=== PATIENT | female | born 1980 | race American Indian/Alaskan Native ===

== ENCOUNTER 2017-02-17 03:50 | Emergency (ER) | payer SELFPAY ==
[2017-02-17 04:03] VITALS: BP 129/67; PULSE 79; RESP 16; TEMP 98; O2SAT 98
--- NOTE | 2017-02-17 04:36 | ED PDOC ---
HPI: General Adult Time Seen by Provider: 02/17/17 04:04 Chief Complaint (Nursing): Lower Extremity Problem/Injury History Per: Patient Additional Complaint(s): Pt. states for >10 years she's had b/l knee pain greatest in the L knee. Reports pain is worse with ambulation. Denies trauma, fever, calf pain, numbness , tingling. Past Medical History Reviewed: Historical Data, Nursing Documentation, Vital Signs Vital Signs: Last Vital Signs Temp 98 F 02/17/17 04:01 Pulse 79 02/17/17 04:01 Resp 16 02/17/17 04:01 BP 129/67 02/17/17 04:01 Pulse Ox 98 02/17/17 04:01 - Family History Family History: States: No Known Family Hx - Home Medications Home Medications: Ambulatory Orders Medication Instructions Recorded Naproxen [Naprosyn] 500 mg PO BID PRN #14 tab 02/17/17 - Allergies Allergies/Adverse Reactions: Allergies Allergy/AdvReac Type Severity Reaction Status Date / Time No Known Allergies Allergy Verified 02/17/17 04:00 Review of Systems ROS Statement: Except As Marked, All Systems Reviewed And Found Negative Physical Exam - Physical Exam Appears: Positive for: Well, Non-toxic, No Acute Distress Skin: Positive for: Normal Color, Warm. Negative for: Rash Pulses-Dorsalis Pedis (L): 2+ Pulses-Dorsalis Pedis (R): 2+ Extremity: Positive for: Other (B/L lower extremities: no tenderness, swelling, deformity, warmth, erythema, skin changes) Neurologic/Psych: Positive for: Alert, Oriented - ECG O2 Sat by Pulse Oximetry: 98 - Progress ED Course And Treament: Naproxen 500mg PO ordered. Pt. instructed to f/u with [facility] for further evaluation. Disposition - Clinical Impression Clinical Impression: Arthralgia - Patient ED Disposition Is Patient to be Admitted: No - Disposition Referrals: [facility] [Outside] Disposition: Routine/Home Disposition Time: 04:44 Condition: STABLE Prescriptions: Naproxen [Naprosyn] 500 mg PO BID PRN #14 tab PRN Reason: Pain Instructions: Arthralgia (ED) Forms: [employer] (Luxembourgish) Print Language: HONDURAN
[2017-02-17] MEDS: Naproxen 500 MG TAB PO ONE (04:50)
== END 2017-02-17 06:15 | disposition home or self-care (01) ==
LOC: H.ER 03:50
DX: M25.562 Pain in left knee (principal)

== ENCOUNTER 2017-06-21 23:01 | Emergency (ER) | payer SELFPAY ==
[2017-06-21 23:01] VITALS: BMI 34.0
[2017-06-21 23:05] VITALS: BP 135/65; PULSE 92; RESP 16; TEMP 98.9; O2SAT 98
[2017-06-21] MEDS ORDERED: Sodium Chloride 0.9% 1,000 ML IV STA (23:35)
--- NOTE | 2017-06-21 23:39 | ED PDOC ---
HPI:Nausea, Vomiting, Diarrhea Time Seen by Provider: 06/21/17 23:27 Chief Complaint (Nursing): Flu-like Symptoms Chief Complaint (Provider): Vomiting, diarrhea, feverish, bodyaches History Per: Patient History/Exam Limitations: no limitations Onset/Duration Of Symptoms: Hrs (Since this morning) Severity: Moderate Pain Scale Rating Of: 6 Associated Symptoms: Fever, Chills, Nausea, Vomiting, Diarrhea, Loss Of Appetite Additional Complaint(s): No medications taken for symptoms. Past Medical History Reviewed: Historical Data, Nursing Documentation, Vital Signs Vital Signs: Last Vital Signs Temp 98.9 F 06/21/17 23:02 Pulse 92 H 06/21/17 23:02 Resp 16 06/21/17 23:02 BP 135/65 06/21/17 23:02 Pulse Ox 98 06/21/17 23:02 - Medical History PMH: Anxiety, Bipolar Disorder - Surgical History Surgical History: No Surg Hx - Family History Family History: States: Diabetes - Living Arrangements Living Arrangements: With Family - Social History Current smoker - smoking cessation education provided: No - Immunization History Hx Tetanus Toxoid Vaccination: Yes Hx Influenza Vaccination: Yes Hx Pneumococcal Vaccination: Yes - Home Medications Home Medications: Ambulatory Orders Medication Instructions Recorded oxyCODONE/Acetaminophen [Percocet 1 tab PO Q6 #10 tab 04/23/17 5/325 mg Tab] - Allergies Allergies/Adverse Reactions: Allergies Allergy/AdvReac Type Severity Reaction Status Date / Time No Known Allergies Allergy Verified 04/23/17 09:37 Review of Systems ROS Statement: Except As Marked, All Systems Reviewed And Found Negative Constitutional: Positive for: Fever (Tactile ), Chills Gastrointestinal: Positive for: Nausea, Vomiting, Abdominal Pain, Diarrhea. Negative for: Melena Physical Exam - Reviewed Nursing Documentation Reviewed: Yes Vital Signs Reviewed: Yes - Physical Exam Appears: Positive for: Well, Non-toxic, No Acute Distress Head Exam: Positive for: ATRAUMATIC, NORMAL INSPECTION, NORMOCEPHALIC Skin: Positive for: Normal Color, Warm, DRY Eye Exam: Positive for: Normal appearance ENT: Positive for: Normal ENT Inspection Neck: Positive for: Normal, Painless ROM Cardiovascular/Chest: Positive for: Regular Rate, Rhythm Respiratory: Positive for: Normal Breath Sounds. Negative for: Accessory Muscle Use, Respiratory Distress Gastrointestinal/Abdominal: Positive for: Bowel Sounds, Soft, Tenderness ( Diffuse ). Negative for: Normal Exam Back: Positive for: Normal Inspection Extremity: Positive for: Normal ROM Neurologic/Psych: Positive for: Alert, Oriented - ECG O2 Sat by Pulse Oximetry: 98 Medical Decision Making Medical Decision Making: Endorsed pending labs and re-evaluation. Disposition - Clinical Impression Clinical Impression: Influenza-like symptoms - Patient ED Disposition Is Patient to be Admitted: Transfer of Care - Disposition Disposition: Transfer of Care Disposition Time: 00:00 Condition: STABLE
[2017-06-22 00:58] LABS: BASO # 0.1 K/uL (0.0-0.2); BASO % 1.3 % (0.0-2.0); EOS # 0.2 K/uL (0.0-0.7); EOS % 2.8 % (0.0-4.0); HEMOGLOBIN 11.4 g/dL (12.0-16.0); LYMPH # 1.5 K/uL (1.0-4.3); LYMPH % 24.9 % (20.0-40.0); MEAN CELL VOLUME 85.6 fl (81.0-99.0); MEAN CORPUSCULAR HEMOGLOBIN 28.2 pg (27.0-31.0); MEAN CORPUSCULAR HGB CONC 32.9 g/dL (33.0-37.0); MEAN PLATELET VOLUME 11.3 fl (7.2-11.7); MONO # 0.6 K/uL (0.0-0.8); MONO % 9.8 % (0.0-10.0); NEUT # 3.6 K/uL (1.8-7.0); NEUT % 61.2 % (50.0-75.0); NRBC % 0.2 % (0.0-0.0); RBC 4.06 Mil/uL (3.80-5.20); RED CELL DISTRIBUTION WIDTH 15.9 % (11.5-14.5); WHITE BLOOD COUNT 5.9 K/uL (4.8-10.8)
[2017-06-22 01:38] LABS: BLOOD UREA NITROGEN 18 mg/dl (7-17); CALCIUM 9.8 mg/dL (8.4-10.2); GFR AFRICAN-AMERICAN > 60; GFR NON-AFRICAN AMERICAN > 60
[2017-06-22 01:39] LABS: ALB/GLOB RATIO 3.6 (1.0-2.1); ALT/SGPT 42 U/L (9-52); AST/SGOT 31 U/L (14-36)
--- NOTE | 2017-06-22 01:54 | ED PDOC ---
- Laboratory Results Result Diagrams: 06/21/17 23:39 06/21/17 23:39 - ECG O2 Sat by Pulse Oximetry: 98 - Progress ED Course And Treament: signed out to business writer pending labs and re-eval. Medical Decision Making Medical Decision Making: PT with stable VS and well appearing. pt is homeless requested to stay in ER until morning. pt stable for d.c Disposition - Clinical Impression Clinical Impression: Influenza-like symptoms - POA Present On Arrival: None - Disposition Disposition: Routine/Home Disposition Time: 05:14 Condition: STABLE Prescriptions: Oseltamivir Phosphate [Tamiflu] 75 mg PO BID #10 capsule Instructions: Influenza (ED) Forms: [employer] (Solomon Islander) Progress Note - Review of Symptoms General: No: Chills, Night Sweats, Fatigue, Malaise, Appetite, Other HEENT: No: Head Aches, Visual Changes, Eye Pain, Ear Pain, Dysphasia, Sinus Congestion, Post Nasal Drip, Sore Throat, Other Cardiovascular: No: Chest Pain, Palpitations, Orthopnea, Paroxysmal Noc. Dyspnea , Edema, Light Headedness, Other Gastrointestinal: No: Nausea, Vomiting, Abdominal Pain, Diarrhea, Constipation, Melena, Hematochezia, Other Musculoskeletal: No: Muscle Pain, Joint Pain, Other Neurological: No: Weakness, Numbness, Incoordination, Change in speech, Confusion, Seizures, Other
== END 2017-06-22 06:21 | disposition home or self-care (01) ==
LOC: H.ER 23:01
DX: R11.2 Nausea with vomiting, unspecified (principal); R50.9 Fever, unspecified; R19.7 Diarrhea, unspecified; F31.9 Bipolar disorder, unspecified; F41.9 Anxiety disorder, unspecified; Z59.0 Homelessness
CPT/HCPCS: 80053; 85025; 87804; 96374; 99282; J1885; J2405; J7040

== ENCOUNTER 2017-07-02 23:19 | Emergency (ER) | payer SELFPAY ==
[2017-07-02 23:19] VITALS: BMI 34.0
[2017-07-02 23:24] VITALS: PULSE 70; RESP 16; TEMP 97.8; O2SAT 98
[2017-07-02] MEDS ORDERED: Sodium Chloride 0.9% 1,000 ML IV STA (23:45)
--- NOTE | 2017-07-02 23:48 | ED PDOC ---
HPI: General Adult Time Seen by Provider: 07/02/17 23:31 Chief Complaint (Nursing): Flu-like Symptoms Chief Complaint (Provider): Body Aches, Vomiting, and Diarrhea History Per: Patient History/Exam Limitations: no limitations Onset/Duration Of Symptoms: Days (2 days) Current Symptoms Are (Timing): Still Present Additional Complaint(s): 36 y/o female presents to the ED complaining of body aches, vomiting, and diarrhea, onset of 2 days. Of note, patient was seen in the ED 10 days earlier reporting of similar symptoms. Patient reports of non-bloody vomiting and diarrhea, but denies any abdominal or chest pain. Past Medical History Reviewed: Historical Data Vital Signs: Last Vital Signs Temp 97.8 F 07/02/17 23:22 Pulse 70 07/02/17 23:22 Resp 16 07/02/17 23:22 BP 122/72 07/02/17 23:22 Pulse Ox 98 07/03/17 00:02 - Medical History PMH: Anxiety, Bipolar Disorder - Surgical History Surgical History: - Family History Family History: States: Diabetes - Social History Current smoker - smoking cessation education provided: Yes (light smoker) SMOKER/PACKS PER DAY:: 10 (less than 10 cigarettes per day) Alcohol: None Drugs: Denies - Immunization History Hx Tetanus Toxoid Vaccination: Yes Hx Influenza Vaccination: Yes Hx Pneumococcal Vaccination: Yes - Home Medications Home Medications: Ambulatory Orders Medication Instructions Recorded oxyCODONE/Acetaminophen [Percocet 1 tab PO Q6 #10 tab 04/23/17 5/325 mg Tab] Oseltamivir Phosphate [Tamiflu] 75 mg PO BID #10 capsule 06/22/17 Ondansetron ODT [Zofran ODT] 4 mg PO Q8 PRN #12 odt 07/03/17 - Allergies Allergies/Adverse Reactions: Allergies Allergy/AdvReac Type Severity Reaction Status Date / Time No Known Allergies Allergy Verified 07/02/17 23:22 Review of Systems ROS Statement: Except As Marked, All Systems Reviewed And Found Negative Cardiovascular: Negative for: Chest Pain Gastrointestinal: Positive for: Vomiting (multiple episodes), Diarrhea ( multiple episodes). Negative for: Abdominal Pain, Hematochezia, Hematemesis Physical Exam - Reviewed Nursing Documentation Reviewed: Yes Vital Signs Reviewed: Yes - Physical Exam Appears: Positive for: Non-toxic, No Acute Distress Head Exam: Positive for: ATRAUMATIC, NORMOCEPHALIC Skin: Positive for: Normal Color, Warm Eye Exam: Positive for: Normal appearance, EOMI, PERRL ENT: Positive for: Normal ENT Inspection Neck: Positive for: Normal, Painless ROM, Supple Cardiovascular/Chest: Positive for: Regular Rate, Rhythm. Negative for: Murmur Respiratory: Positive for: Normal Breath Sounds. Negative for: Respiratory Distress Gastrointestinal/Abdominal: Positive for: Normal Exam, Soft. Negative for: Tenderness Back: Positive for: Normal Inspection Extremity: Positive for: Normal ROM. Negative for: Pedal Edema, Deformity Neurologic/Psych: Positive for: Alert, Oriented. Negative for: Motor/Sensory Deficits - Laboratory Results Result Diagrams: 07/03/17 00:15 07/03/17 00:15 - ECG O2 Sat by Pulse Oximetry: 98 (RA) Pulse Ox Interpretation: Normal - Progress Re-evaluation Time: 01:42 Condition: Re-examined, Improved Medical Decision Making Medical Decision Making: Time: --23:45 Impression: --Vomiting and Diarrhea Differential: --Gastroenteritis, Dehydration Plan: --ED Urine Dip --IV Fluids --Zofran 4mg Iv --IV Insertion - Reassess Scribe Attestation: Documented by Evaristo Moreno acting as a scribe for Nadine Fisher MD. Disposition - Clinical Impression Clinical Impression: Vomiting and diarrhea - Patient ED Disposition Is Patient to be Admitted: No Doctor Will See Patient In The: Office Counseled Patient/Family Regarding: Studies Performed, Diagnosis, Need For Followup - Disposition Referrals: [facility] [Outside] Disposition: Routine/Home Disposition Time: :43 Condition: GOOD Additional Instructions: Follow up with your PCP in 2-3 days. Prescriptions: Ondansetron ODT [Zofran ODT] 4 mg PO Q8 PRN #12 odt PRN Reason: Nausea/Vomiting Instructions: Gastroenteritis (ED)
[2017-07-03 00:38] LABS: BASO # 0.1 K/uL (0.0-0.2); BASO % 1.1 % (0.0-2.0); EOS # 0.2 K/uL (0.0-0.7); EOS % 2.6 % (0.0-4.0); HEMOGLOBIN 10.9 g/dL (12.0-16.0); LYMPH # 2.7 K/uL (1.0-4.3); LYMPH % 43.2 % (20.0-40.0); MEAN CELL VOLUME 85.8 fl (81.0-99.0); MEAN CORPUSCULAR HEMOGLOBIN 28.1 pg (27.0-31.0); MEAN CORPUSCULAR HGB CONC 32.8 g/dL (33.0-37.0); MONO # 0.5 K/uL (0.0-0.8); MONO % 7.5 % (0.0-10.0); NEUT # 2.9 K/uL (1.8-7.0); NEUT % 45.6 % (50.0-75.0); NRBC % 0.1 % (0.0-0.0); RBC 3.89 Mil/uL (3.80-5.20); RED CELL DISTRIBUTION WIDTH 15.8 % (11.5-14.5); WHITE BLOOD COUNT 6.4 K/uL (4.8-10.8)
[2017-07-03 00:48] LABS: ALBUMIN 3.7 g/dL (3.5-5.0); ALT/SGPT 37 U/L (9-52); AST/SGOT 22 U/L (14-36); BLOOD UREA NITROGEN 17 mg/dl (7-17); CALCIUM 9.6 mg/dL (8.4-10.2); GFR AFRICAN-AMERICAN > 60; GFR NON-AFRICAN AMERICAN > 60
[2017-07-03 02:57] VITALS: BP 111/76
== END 2017-07-03 02:59 | disposition home or self-care (01) ==
LOC: H.ER 23:19
DX: K52.9 Noninfective gastroenteritis and colitis, unspecified (principal); F31.9 Bipolar disorder, unspecified; F41.9 Anxiety disorder, unspecified
CPT/HCPCS: 80053; 85025; 96360; 99283; J2405; J7040

== ENCOUNTER 2017-07-12 01:03 | Emergency (ER) | payer SELFPAY ==
[2017-07-12 01:03] VITALS: BMI 34.0
[2017-07-12 01:26] VITALS: BP 125/64; PULSE 75; RESP 18; TEMP 98.1; O2SAT 99
[2017-07-12] MEDS ORDERED: Sodium Chloride 0.9% 1,000 ML IV STA (01:35)
--- NOTE | 2017-07-12 01:50 | ED PDOC ---
HPI:Nausea, Vomiting, Diarrhea Time Seen by Provider: 07/12/17 01:19 Chief Complaint (Nursing): GI Problem Chief Complaint (Provider): GI Problem History Per: Patient History/Exam Limitations: no limitations Onset/Duration Of Symptoms: Days (x1) Current Symptoms Are (Timing): Still Present Additional Complaint(s): 36 year old female who presents to the emergency department with a complaint of nausea associated with abdominal pain, 7 episodes of nonbloody, nonbilious vomiting and streaks of blood in diarrhea ongoing for 1 day. Patient reported a stomach virus spreading at work. Denied any fever, chills, cough, chest pain or shortness of breath. PMD: none provided Past Medical History Reviewed: Historical Data, Nursing Documentation, Vital Signs Vital Signs: Last Vital Signs Temp 98.1 F 07/12/17 01:24 Pulse 75 07/12/17 01:24 Resp 18 07/12/17 01:24 BP 125/64 07/12/17 01:24 Pulse Ox 99 07/12/17 01:24 - Medical History PMH: Anxiety, Bipolar Disorder - Surgical History Surgical History: Denies: No Surg Hx - Family History Family History: States: Diabetes - Immunization History Hx Tetanus Toxoid Vaccination: Yes Hx Influenza Vaccination: Yes Hx Pneumococcal Vaccination: Yes - Home Medications Home Medications: Ambulatory Orders Medication Instructions Recorded oxyCODONE/Acetaminophen [Percocet 1 tab PO Q6 #10 tab 04/23/17 5/325 mg Tab] Oseltamivir Phosphate [Tamiflu] 75 mg PO BID #10 capsule 06/22/17 Ondansetron ODT [Zofran ODT] 4 mg PO Q8 PRN #12 odt 07/03/17 Dicyclomine [Bentyl] 20 mg PO Q12 PRN #20 tab 07/12/17 Ondansetron ODT [Zofran ODT] 4 mg PO Q6H PRN #8 odt 07/12/17 - Allergies Allergies/Adverse Reactions: Allergies Allergy/AdvReac Type Severity Reaction Status Date / Time No Known Allergies Allergy Verified 07/12/17 01:26 Review of Systems ROS Statement: Except As Marked, All Systems Reviewed And Found Negative Constitutional: Negative for: Fever, Chills Cardiovascular: Negative for: Chest Pain Respiratory: Negative for: Cough, Shortness of Breath Gastrointestinal: Positive for: Nausea, Vomiting (nonbloody, non bilious x7), Abdominal Pain, Diarrhea (streaks of blood) Physical Exam - Reviewed Nursing Documentation Reviewed: Yes Vital Signs Reviewed: Yes - Physical Exam Appears: Positive for: Well, Non-toxic, No Acute Distress Head Exam: Positive for: ATRAUMATIC, NORMAL INSPECTION, NORMOCEPHALIC Skin: Positive for: Normal Color Eye Exam: Positive for: Normal appearance ENT: Positive for: Pharynx Is (within normal limits), Other (tacky mucous membrane). Negative for: Pharyngeal Erythema, Tonsillar Exudate Neck: Positive for: Normal, Painless ROM, Supple Cardiovascular/Chest: Positive for: Regular Rate, Rhythm, Chest Non Tender Respiratory: Positive for: Normal Breath Sounds. Negative for: Decreased Breath Sounds, Respiratory Distress Gastrointestinal/Abdominal: Positive for: Soft, Tenderness (diffuse mildly) Neurologic/Psych: Positive for: Alert (x3), Oriented - Laboratory Results Result Diagrams: 07/12/17 02:40 07/12/17 02:40 - ECG O2 Sat by Pulse Oximetry: 99 (RA) Pulse Ox Interpretation: Normal Medical Decision Making Medical Decision Making: Initial Impression: Nausea; vomiting; diarrhea Initial Plan: * CMP * Lipase * Urine * Urine dipstick * CBC * Bentyl 20mg PO * NS 1,000ml IV per 1,000mls/hr * Influenza A B ____ Time: 0240 --Rapid flu: negative for influenza. ____ Time: 0345 --Upon provider reevaluation, patient is feeling better, medically stable and requires no further treatment in the ED at this time. Patient will be discharged home with Rx for Bentyl 20mg and Zofran ODT 4mg. Counseling was provided and all questions were answered regarding diagnosis. There is agreement to discharge plan. Return if symptoms persist or worsen. Clinical Impression: Gastroenteritis Scribe Attestation: Documented by Cari Duran, acting as a scribe for Jair Greenwood MD. Provider Scribe Attestation: All medical record entries made by the Scribe were at my direction and personally dictated by me. I have reviewed the chart and agree that the record accurately reflects my personal performance of the history, physical exam, medical decision making, and the department course for this patient. I have also personally directed, reviewed, and agree with the discharge instructions and disposition. Disposition - Clinical Impression Clinical Impression: Gastroenteritis - Patient ED Disposition Is Patient to be Admitted: No Counseled Patient/Family Regarding: Studies Performed, Diagnosis - Disposition Disposition: Routine/Home Disposition Time: 03:45 Condition: STABLE Prescriptions: Dicyclomine [Bentyl] 20 mg PO Q12 PRN #20 tab PRN Reason: abdominal pain/diarrhea Ondansetron ODT [Zofran ODT] 4 mg PO Q6H PRN #8 odt PRN Reason: Nausea/Vomiting Instructions: Gastroenteritis (ED) Forms: [employer] (Nicaraguan)
[2017-07-12 02:50] LABS: BASO # 0.1 K/uL (0.0-0.2); BASO % 0.8 % (0.0-2.0); EOS # 0.1 K/uL (0.0-0.7); EOS % 1.9 % (0.0-4.0); HEMOGLOBIN 10.6 g/dL (12.0-16.0); LYMPH # 2.4 K/uL (1.0-4.3); MEAN CELL VOLUME 85.9 fl (81.0-99.0); MEAN CORPUSCULAR HEMOGLOBIN 27.2 pg (27.0-31.0); MEAN CORPUSCULAR HGB CONC 31.6 g/dL (33.0-37.0); MEAN PLATELET VOLUME 10.6 fl (7.2-11.7); MONO # 0.6 K/uL (0.0-0.8); MONO % 8.9 % (0.0-10.0); NEUT # 3.6 K/uL (1.8-7.0); NEUT % 53.4 % (50.0-75.0); NRBC % 0.1 % (0.0-0.0); RBC 3.92 Mil/uL (3.80-5.20); WHITE BLOOD COUNT 6.8 K/uL (4.8-10.8)
[2017-07-12 03:27] LABS: ALB/GLOB RATIO 1.2 (1.0-2.1); ALBUMIN 4.1 g/dL (3.5-5.0); ALT/SGPT 29 U/L (9-52); AST/SGOT 23 U/L (14-36); BLOOD UREA NITROGEN 19 mg/dl (7-17); CALCIUM 9.7 mg/dL (8.4-10.2); GFR AFRICAN-AMERICAN > 60; GFR NON-AFRICAN AMERICAN > 60; LIPASE 72 U/L (23-300)
== END 2017-07-12 04:00 | disposition home or self-care (01) ==
LOC: H.ER 01:03
DX: K52.9 Noninfective gastroenteritis and colitis, unspecified (principal); F31.9 Bipolar disorder, unspecified; F41.9 Anxiety disorder, unspecified
CPT/HCPCS: 80053; 83690; 85025; 87804; 96360; 99283; J2405; J7040

== ENCOUNTER 2017-07-20 23:22 | Emergency (ER) | payer SELFPAY ==
[2017-07-20 23:31] VITALS: BMI 21.5
[2017-07-20 23:36] VITALS: TEMP 97.1
--- NOTE | 2017-07-21 00:12 | ED PDOC ---
HPI: Psych/Substance Abuse Time Seen by Provider: 07/20/17 23:39 Chief Complaint (Nursing): Alcohol Ingestion Chief Complaint (Provider): Alcohol Ingestion ED Caveat: Intoxicated, Uncooperative History Per: Patient, EMS History/Exam Limitations: intoxication Onset/Duration Of Symptoms: Mins (prior to arrival) Current Symptoms Are (Timing): Still Present Modifying Factor(s): Alcohol Associated Symptoms: Agitation Additional Complaint(s): 36 year old female with a history of bipolar disorder was brought in by EMS for evaluation of intoxication. EMS reports patient was found on the street publicly intoxicated. According to EMS patient appeared confused and intoxicated with unsteady gait. Upon arrival to the ED, she was shouting and acting agitated. History is limited due to intoxication. Patient is not voicing any medical complaints. PMD: none provided. Past Medical History Reviewed: Historical Data, Nursing Documentation, Vital Signs Vital Signs: Last Vital Signs Temp 97.1 F L 07/20/17 23:33 Pulse 104 H 07/20/17 23:33 Resp 18 07/20/17 23:33 BP 142/103 H 07/20/17 23:33 Pulse Ox 98 07/20/17 23:33 - Medical History PMH: Anxiety, Bipolar Disorder Denies: Chronic Kidney Disease - Surgical History Surgical History: - Family History Family History: States: Diabetes - Immunization History Hx Tetanus Toxoid Vaccination: Yes Hx Influenza Vaccination: Yes Hx Pneumococcal Vaccination: Yes - Home Medications Home Medications: Ambulatory Orders Medication Instructions Recorded oxyCODONE/Acetaminophen [Percocet 1 tab PO Q6 #10 tab 04/23/17 5/325 mg Tab] Oseltamivir Phosphate [Tamiflu] 75 mg PO BID #10 capsule 06/22/17 Ondansetron ODT [Zofran ODT] 4 mg PO Q8 PRN #12 odt 07/03/17 Dicyclomine [Bentyl] 20 mg PO Q12 PRN #20 tab 07/12/17 Ondansetron ODT [Zofran ODT] 4 mg PO Q6H PRN #8 odt 07/12/17 - Allergies Allergies/Adverse Reactions: Allergies Allergy/AdvReac Type Severity Reaction Status Date / Time No Known Allergies Allergy Verified 07/12/17 01:26 Review of Systems ROS Statement: Except As Marked, All Systems Reviewed And Found Negative Review Of Systems: ROS cannot be obtained secondary to pt's inabilty to answer questions. (due to intoxication) Psych: Negative for: Suicidal ideation, Other (homicidal ideation) Physical Exam - Reviewed Nursing Documentation Reviewed: Yes Vital Signs Reviewed: Yes - Physical Exam Appears: Positive for: No Acute Distress, Uncomfortable (appears agitated) Head Exam: Positive for: ATRAUMATIC, NORMOCEPHALIC Skin: Positive for: Normal Color, Warm, Dry Eye Exam: Positive for: EOMI, Normal appearance, PERRL Neck: Positive for: Normal, Painless ROM, Supple Cardiovascular/Chest: Positive for: Regular Rate, Rhythm Respiratory: Negative for: Respiratory Distress Extremity: Positive for: Normal ROM. Negative for: Deformity Neurologic/Psych: Positive for: Alert, Oriented, Gait (steady), Other (slurred speech). Negative for: Motor/Sensory Deficits - ECG O2 Sat by Pulse Oximetry: 98 (RA) Pulse Ox Interpretation: Normal Medical Decision Making Medical Decision Making: Time: 23:31 Impression: alcohol intoxication Initial Plan: --Alcohol serum --Ativan 2 mg IM --Haldol 5 mg IM --Restraints ordered Patient will be monitored in the ED for clinical sobriety. Upon face to face contact with patient, she was placed in restraints for agitation towards staff and was administered Haldol and Ativan for treatment of alcohol induced psychosis. Scribe Attestation: Documented by Jessica Yao, acting as a scribe for Nadine Fisher MD. Provider Scribe Attestation: All medical record entries made by the Scribe were at my direction and personally dictated by me. I have reviewed the chart and agree that the record accurately reflects my personal performance of the history, physical exam, medical decision making, and the department course for this patient. I have also personally directed, reviewed, and agree with the discharge instructions and disposition. Disposition - Clinical Impression Clinical Impression: Alcohol use - Patient ED Disposition Is Patient to be Admitted: Transfer of Care Counseled Patient/Family Regarding: Studies Performed, Diagnosis - Disposition Referrals: [facility] at [facility] [place] [Outside] Disposition: Transfer of Care Disposition Time: 07:00 Condition: IMPROVED Additional Instructions: Ms Luis, thank you for letting us take care of you today. Your provider was Dr. Tse. You were treated for Alcohol Intoxication. The emergency medical care you received today was directed at your acute symptoms. If you were prescribed any medication, please fill it and take as directed. It may take several days for your symptoms to resolve. Return to the Emergency Department if your symptoms worsen, do not improve, or if you have any other problems. Please contact your doctor or call one of the physicians/clinics you have been referred to that are listed on the Patient Visit Information form that is included in your discharge packet. Bring any paperwork you were given at discharge with you along with any medications you are taking to your follow up visit. Our treatment cannot replace ongoing medical care by a primary care provider (PCP) outside of the emergency department. Thank you for allowing the [facility] hospital team to be part of your care today. If you had an X-Ray or CT scan: A Radiologist will review the ED reading if any change in treatment is needed we will contact you. If you had a blood, urine, or wound culture: It will take several days for the results, if any change in treatment is needed we will contact you. If you had an STI test: It will take 48 hours for the results. Please call after 1 week if you have not heard back. Instructions: Alcohol Intoxication (ED) Patient Signed Over To: Kirill Tse (pending clinical sobriety)
[2017-07-21 03:26] VITALS: BP 99/50; PULSE 73; RESP 16
[2017-07-21 06:57] VITALS: O2SAT 98
--- NOTE | 2017-07-21 07:09 | ED PDOC ---
- ECG O2 Sat by Pulse Oximetry: 98 (RA) Pulse Ox Interpretation: Normal Medical Decision Making Medical Decision Making: Time: 07:00 Patient is signed to me by Dr. Fisher, pending clinical sobriety. Time: 07:11 Patient is alert and oriented x 3. No slurred speech. No ataxia. Denies SI or HI , delusions, hallucinations. Patient is clinically sober to go home. 7:23 - Patient's /boyfriend started becoming aggressive with staff. They were both escorted out by our security guards. Scribe Attestation: Documented by Reggie Solis, acting as a scribe for Kirill Tse MD. Provider Scribe Attestation: All medical record entries made by the Scribe were at my direction and personally dictated by me. I have reviewed the chart and agree that the record accurately reflects my personal performance of the history, physical exam, medical decision making, and the department course for this patient. I have also personally directed, reviewed, and agree with the discharge instructions and disposition. Disposition - Clinical Impression Clinical Impression: Alcohol use - POA Present On Arrival: None - Disposition Referrals: [facility] at [facility] [place]] Disposition: Routine/Home Disposition Time: 07:11 Condition: IMPROVED Additional Instructions: Ms Luis, thank you for letting us take care of you today. Your provider was Dr. Tse. You were treated for Alcohol Intoxication. The emergency medical care you received today was directed at your acute symptoms. If you were prescribed any medication, please fill it and take as directed. It may take several days for your symptoms to resolve. Return to the Emergency Department if your symptoms worsen, do not improve, or if you have any other problems. Please contact your doctor or call one of the physicians/clinics you have been referred to that are listed on the Patient Visit Information form that is included in your discharge packet. Bring any paperwork you were given at discharge with you along with any medications you are taking to your follow up visit. Our treatment cannot replace ongoing medical care by a primary care provider (PCP) outside of the emergency department. Thank you for allowing the [facility] team to be part of your care today. If you had an X-Ray or CT scan: A Radiologist will review the ED reading if any change in treatment is needed we will contact you. If you had a blood, urine, or wound culture: It will take several days for the results, if any change in treatment is needed we will contact you. If you had an STI test: It will take 48 hours for the results. Please call after 1 week if you have not heard back. Instructions: Alcohol Intoxication (ED)
== END 2017-07-21 07:25 | disposition home or self-care (01) ==
LOC: H.ER 23:22
DX: Z72.89 Other problems related to lifestyle (principal)
CPT/HCPCS: 96372; 99283; G0480; J1630; J2060

== ENCOUNTER 2017-07-30 15:55 | Emergency (ER) | payer SELFPAY ==
[2017-07-30 15:55] VITALS: BMI 21.5
[2017-07-30 16:45] VITALS: BP 116/67; PULSE 93; RESP 16; O2SAT 100
[2017-07-30] MEDS ORDERED: Promethazine/Cod 6.25mg-10mg/5ml Syr UD PO STA (17:29)
[2017-07-30] MEDS ORDERED: Promethazine/Cod 6.25mg-10mg/5ml Syr UD ONE (17:35)
--- NOTE | 2017-07-30 18:47 | ED PDOC ---
HPI: General Adult Time Seen by Provider: 07/30/17 16:56 Chief Complaint (Nursing): GI Problem Chief Complaint (Provider): flu History Per: Patient History/Exam Limitations: no limitations Onset/Duration Of Symptoms: Days (2x) Current Symptoms Are (Timing): Still Present Additional Complaint(s): Eva Luis, a 36 year old male presents to the ED complaining of multiple flu-like symptoms onset two days ago. Reports of fever, body ache, head ache, congestion, cough, and chest pain. Also has chronic leg pain. PMD: NO FAMILY PROVIDER Past Medical History Reviewed: Historical Data, Nursing Documentation, Vital Signs Vital Signs: Last Vital Signs Temp 98.0 F 07/30/17 20:27 Pulse 93 H 07/30/17 16:42 Resp 16 07/30/17 16:42 BP 116/67 07/30/17 16:42 Pulse Ox 100 07/30/17 19:59 - Medical History PMH: Anxiety, Bipolar Disorder Denies: Chronic Kidney Disease - Surgical History Surgical History: - Family History Family History: States: Diabetes - Immunization History Hx Tetanus Toxoid Vaccination: Yes Hx Influenza Vaccination: Yes Hx Pneumococcal Vaccination: Yes - Home Medications Home Medications: Ambulatory Orders Medication Instructions Recorded oxyCODONE/Acetaminophen [Percocet 1 tab PO Q6 #10 tab 04/23/17 5/325 mg Tab] Oseltamivir Phosphate [Tamiflu] 75 mg PO BID #10 capsule 06/22/17 Ondansetron ODT [Zofran ODT] 4 mg PO Q8 PRN #12 odt 07/03/17 Dicyclomine [Bentyl] 20 mg PO Q12 PRN #20 tab 07/12/17 Ondansetron ODT [Zofran ODT] 4 mg PO Q6H PRN #8 odt 07/12/17 Oseltamivir Phosphate [Tamiflu] 75 mg PO BID 5 Days capsule 07/30/17 - Allergies Allergies/Adverse Reactions: Allergies Allergy/AdvReac Type Severity Reaction Status Date / Time No Known Allergies Allergy Verified 07/30/17 16:42 Review of Systems ROS Statement: Except As Marked, All Systems Reviewed And Found Negative Constitutional: Positive for: Fever, Other (body ache; head ache) ENT: Positive for: Nose Congestion Cardiovascular: Positive for: Chest Pain (whenever he coughs) Respiratory: Positive for: Cough Musculoskeletal: Positive for: Leg Pain (chronic) Physical Exam - Reviewed Nursing Documentation Reviewed: Yes Vital Signs Reviewed: Yes - Physical Exam Appears: Positive for: Well, Non-toxic, No Acute Distress Head Exam: Positive for: ATRAUMATIC, NORMAL INSPECTION, NORMOCEPHALIC Skin: Positive for: Normal Color, Warm, Dry Eye Exam: Positive for: EOMI, Normal appearance, PERRL ENT: Positive for: Pharyngeal Erythema Neck: Positive for: Normal, Painless ROM, Supple. Negative for: Decreased ROM Cardiovascular/Chest: Positive for: Regular Rate, Rhythm. Negative for: Murmur , Bradycardia Respiratory: Positive for: Normal Breath Sounds. Negative for: Wheezing, Respiratory Distress Gastrointestinal/Abdominal: Positive for: Normal Exam, Bowel Sounds, Soft. Negative for: Tenderness Back: Positive for: Normal Inspection. Negative for: L CVA Tenderness, R CVA Tenderness Extremity: Positive for: Normal ROM. Negative for: Tenderness, Pedal Edema, Deformity Neurologic/Psych: Positive for: Alert, Oriented (x3) - ECG O2 Sat by Pulse Oximetry: 100 Medical Decision Making Medical Decision Making: Time: 17:28 Initial Impression: Flu-Like symptoms, Upper respiratory tract infection Differential Diagnosis includes but is not limited to: strep throat, influenza rule out pneumonia Initial Plan: --Chest X-ray --Phenergan/Codeine 5ml --Toradol 30mg --Influenza A B --Rapid strep group --Reevaluation Time: 18:53 FINDINGS: LINES AND TUBES: None. LUNG AND PLEURA: The lungs are well inflated and clear. HEART AND MEDIASTINUM: The heart is not enlarged. The hilar and mediastinal contours are within normal limits. SKELETAL STRUCTURES: The bony structures are within normal limits for the patient's age. VISUALIZED UPPER ABDOMEN: Normal. OTHER FINDINGS: None. IMPRESSION: No active pulmonary disease. Documented by Apurva King acting as a scribe for Gerasim A Orbelyan, MD. All medical record entries made by the Scribe were at my direction and personally dictated by me. I have reviewed the chart and agree that the record accurately reflects my personal performance of the history, physical exam, medical decision making, and the department course for this patient. I have also personally directed, reviewed, and agree with the discharge instructions and disposition. Disposition - Clinical Impression Clinical Impression: Influenza - Patient ED Disposition Is Patient to be Admitted: Transfer of Care Doctor Will See Patient In The: Office Counseled Patient/Family Regarding: Studies Performed, Diagnosis, Need For Followup - Disposition Referrals: [facility] [Outside] Disposition: Transfer of Care Disposition Time: 19:00 Condition: STABLE Prescriptions: Oseltamivir Phosphate [Tamiflu] 75 mg PO BID 5 Days capsule Instructions: Influenza (ED) Patient Signed Over To: Mello Condon
--- NOTE | 2017-07-30 19:59 | ED PDOC ---
- ECG O2 Sat by Pulse Oximetry: 100 Pulse Ox Interpretation: Normal Medical Decision Making Medical Decision MakinPM Patient seen at bedside, sleeping soundly. Informed of + flu result, will treat w/ tamiflu given <48 hours onset of symptoms. Advised to drink plenty of fluids. Return precautions were discussed. Patient feeling well upon discharge. Disposition - Clinical Impression Clinical Impression: Influenza - POA Present On Arrival: None - Disposition Referrals: [facility] [Outside] Disposition: Routine/Home Disposition Time: 19:59 Condition: STABLE Prescriptions: Oseltamivir Phosphate [Tamiflu] 75 mg PO BID 5 Days capsule Instructions: Influenza (ED) Forms: [facility] (Australian)
[2017-07-30 20:27] VITALS: TEMP 98
== END 2017-07-30 20:27 | disposition home or self-care (01) ==
LOC: H.ER 15:55
DX: J11.1 Influenza due to unidentified influenza virus with other respiratory manifestations (principal); G89.29 Other chronic pain; F31.9 Bipolar disorder, unspecified; F41.9 Anxiety disorder, unspecified
CPT/HCPCS: 71046; 81025; 87070; 87430; 87804; 96372; 99284; J1885

== ENCOUNTER 2017-12-05 21:30 | Emergency (ER) | payer SELFPAY ==
[2017-12-05 21:30] VITALS: BMI 21.5
[2017-12-05 21:34] VITALS: RESP 18; TEMP 97.7
--- NOTE | 2017-12-05 21:44 | ED PDOC ---
HPI: General Adult Time Seen by Provider: 12/05/17 21:35 Chief Complaint (Nursing): Medical Clearance Chief Complaint (Provider): clearance History Per: Patient, Other (police) Additional Complaint(s): 37 year old female presents for medical and psychiatric clearance prior to incarceration. Patient is currently under arrest and arrives in police custody. She offers no acute medical or psychiatric complaints. PMD: none Past Medical History Reviewed: Historical Data, Nursing Documentation, Vital Signs Vital Signs: Last Vital Signs Temp 97.7 F 12/05/17 21:31 Pulse 70 12/05/17 21:31 Resp 18 12/05/17 21:31 BP 121/80 12/05/17 21:31 Pulse Ox 100 12/05/17 22:55 - Medical History PMH: Anxiety, Bipolar Disorder - Surgical History Surgical History: - Family History Family History: States: Diabetes - Living Arrangements Living Arrangements: Other (non-domiciled) - Social History Alcohol: Social Drugs: Denies - Home Medications Home Medications: Ambulatory Orders Medication Instructions Recorded oxyCODONE/Acetaminophen [Percocet 1 tab PO Q6 #10 tab 04/23/17 5/325 mg Tab] Oseltamivir Phosphate [Tamiflu] 75 mg PO BID #10 capsule 06/22/17 Ondansetron ODT [Zofran ODT] 4 mg PO Q8 PRN #12 odt 07/03/17 Dicyclomine [Bentyl] 20 mg PO Q12 PRN #20 tab 07/12/17 Ondansetron ODT [Zofran ODT] 4 mg PO Q6H PRN #8 odt 07/12/17 Oseltamivir Phosphate [Tamiflu] 75 mg PO BID 5 Days capsule 07/30/17 - Allergies Allergies/Adverse Reactions: Allergies Allergy/AdvReac Type Severity Reaction Status Date / Time No Known Allergies Allergy Verified 07/30/17 16:42 Review of Systems ROS Statement: Except As Marked, All Systems Reviewed And Found Negative Psych: Positive for: Other (Denies suicidal or homicidal ideation) Physical Exam - Reviewed Nursing Documentation Reviewed: Yes Vital Signs Reviewed: Yes - Physical Exam Appears: Positive for: Well, Non-toxic, No Acute Distress Skin: Positive for: Normal Color. Negative for: Rash Eye Exam: Positive for: Normal appearance Cardiovascular/Chest: Positive for: Regular Rate, Rhythm Respiratory: Positive for: Normal Breath Sounds. Negative for: Wheezing, Respiratory Distress Extremity: Positive for: Normal ROM Neurologic/Psych: Positive for: Alert, Oriented - ECG O2 Sat by Pulse Oximetry: 100 Pulse Ox Interpretation: Normal Medical Decision Making Medical Decision Makin37 year old female here for medical and psychiatric clearance Plan: BAL UDS test Crisis eval BAL: 218 UDS: (+) for PCP As per crisis department patient will be seen at 12:30 am, will continue to monitor patient. Disposition - Clinical Impression Clinical Impression: Alcohol intoxication, Encounter for psychiatric assessment - Patient ED Disposition Is Patient to be Admitted: No - Disposition Disposition: Transfer of Care Disposition Time: 23:55 Condition: FAIR Instructions: General (DC) Forms: [facility] (Moldovan) Patient Signed Over To: Val Faust PA-C Handoff Comments: Signed out pending crisis eval and final disposition
[2017-12-05 22:30] LABS: BARBITURATES, UR NEGATIVE (NEGATIVE); BENZODIAZEPINES, UR NEGATIVE (NEGATIVE); OPIATES, UR NEGATIVE (NEGATIVE); PHENCYCLIDINE, UR POSITIVE (NEGATIVE)
--- NOTE | 2017-12-06 00:49 | ED PDOC ---
- ECG O2 Sat by Pulse Oximetry: 100 (RA) Pulse Ox Interpretation: Normal Medical Decision Making Medical Decision Making: Patient was signed out to me by MINNIE Beach at 0000 pending crisis evaluation, at this time the patient is medically cleared and is currently under police arrest. 0215 Patient seen and evaluated by crisis. 0230 Patient is cleared by crisis. On re-evaluation, patient is AAOx3 in no acute distress, laying in bed comfortably, o slurred speech, no tremors, is calm and cooperative. Lungs clear to auscultation, cardiac RRR, abdomen soft, non-tender, repeat neuro exam shows no focal findings. Patient is medically and psychiatrically cleared, she will be discharged to the police custody. VS P 78 BP 103/83 R 18 O2sat 97%RA. Scribe Attestation: Documented by, Livia Torrez acting as a scribe for Val Faust PA-C. Provider Scribe Attestation: All medical record entries made by the Scribe were at my direction and personally dictated by me. I have reviewed the chart and agree that the record accurately reflects my personal performance of the history, physical exam, medical decision making, and the department course for this patient. I have also personally directed, reviewed, and agree with the discharge instructions and disposition. Disposition - Clinical Impression Clinical Impression: Alcohol intoxication, Encounter for psychiatric assessment - POA Present On Arrival: None - Disposition Disposition: Discharged/Transfer to Law Enforcement Disposition Time: 02:30 Condition: FAIR Additional Instructions: Patient medically and psychiatrically cleared for incarceration. Instructions: Alcohol Abuse and Alcoholism (DC), General (DC) Forms: [employer] (Ivorian) - PA / TAX ASSESSOR / Resident Statement MD/DO has reviewed & agrees with the documentation as recorded.
[2017-12-06 02:53] VITALS: BP 103/83; PULSE 78
[2017-12-06 03:44] VITALS: O2SAT 100
== END 2017-12-06 02:58 ==
LOC: H.ER 21:30
DX: F10.129 Alcohol abuse with intoxication, unspecified (principal); Z00.8 Encounter for other general examination; F31.9 Bipolar disorder, unspecified; F41.9 Anxiety disorder, unspecified
CPT/HCPCS: 81025; 99282; G0480

== ENCOUNTER 2018-02-22 13:39 | Emergency (ER) | payer MEDICAID ==
[2018-02-22 13:39] VITALS: BMI 21.5
[2018-02-22 13:43] VITALS: O2SAT 100
--- NOTE | 2018-02-22 13:59 | ED PDOC ---
HPI: Psych/Substance Abuse Time Seen by Provider: 02/22/18 13:45 Chief Complaint (Nursing): Psychiatric Evaluation Chief Complaint (Provider): Psychiatric Evaluation History Per: Patient History/Exam Limitations: no limitations Onset/Duration Of Symptoms: Mins (prior to arrival) Current Symptoms Are (Timing): Still Present Suicide/Self Injury Attempted (Context): None Additional Complaint(s): 37 year old female with a history of bipolar disorder presents via EMS after having a panic attack prior to arrival to the ED. Patient reports her last dose of Seroquil was 5 years ago. Admits to drinking alcohol yesterday. Offers no other medical complaints. PMD: none provided Past Medical History Reviewed: Historical Data, Nursing Documentation, Vital Signs Vital Signs: Last Vital Signs Temp 98.2 F 02/22/18 13:40 Pulse 60 02/22/18 13:40 Resp 18 02/22/18 13:40 BP Pulse Ox 100 02/22/18 13:40 - Medical History PMH: Anxiety, Bipolar Disorder Denies: Diabetes, Hepatitis, HIV, HTN, Chronic Kidney Disease, Seizures, Sexually Transmitted Disease - Surgical History Surgical History: - Family History Family History: States: Diabetes - Immunization History Hx Tetanus Toxoid Vaccination: Yes Hx Influenza Vaccination: Yes Hx Pneumococcal Vaccination: Yes - Home Medications Home Medications: Ambulatory Orders Medication Instructions Recorded oxyCODONE/Acetaminophen [Percocet 1 tab PO Q6 #10 tab 04/23/17 5/325 mg Tab] Oseltamivir Phosphate [Tamiflu] 75 mg PO BID #10 capsule 06/22/17 Ondansetron ODT [Zofran ODT] 4 mg PO Q8 PRN #12 odt 07/03/17 Dicyclomine [Bentyl] 20 mg PO Q12 PRN #20 tab 07/12/17 Ondansetron ODT [Zofran ODT] 4 mg PO Q6H PRN #8 odt 07/12/17 Oseltamivir Phosphate [Tamiflu] 75 mg PO BID 5 Days capsule 07/30/17 - Allergies Allergies/Adverse Reactions: Allergies Allergy/AdvReac Type Severity Reaction Status Date / Time No Known Allergies Allergy Verified 07/30/17 16:42 Review of Systems ROS Statement: Except As Marked, All Systems Reviewed And Found Negative Psych: Positive for: Other (panic attack ) Physical Exam - Reviewed Nursing Documentation Reviewed: Yes Vital Signs Reviewed: Yes - Physical Exam Appears: Positive for: Well (patient is laying comfortably in bed) Head Exam: Positive for: ATRAUMATIC, NORMAL INSPECTION, NORMOCEPHALIC Skin: Positive for: Normal Color, Warm, Dry Eye Exam: Positive for: EOMI, Normal appearance, PERRL Cardiovascular/Chest: Positive for: Regular Rate, Rhythm. Negative for: Murmur Respiratory: Positive for: Normal Breath Sounds (clear to auscultation). Negative for: Respiratory Distress Gastrointestinal/Abdominal: Positive for: Normal Exam, Soft. Negative for: Tenderness Neurologic/Psych: Positive for: Alert, Oriented (x 3). Negative for: Motor/ Sensory Deficits - Laboratory Results Urine POC: Negative - ECG ECG Rhythm: Positive for: Sinus Bradycardia (49 BPM NO ECTOPY NO ACUTE CHANGES) O2 Sat by Pulse Oximetry: 100 (RA) Pulse Ox Interpretation: Normal - Progress ED Course And Treament: SEEN BY CRISIS TEAM. D/C HOME ANXIETY. FOLLOW UP OUTPATIENT. VISTARIL 25 MG X 1 DOSE Medical Decision Making Medical Decision Makin:52 Initial Plan: --EKG --Urine preg 15:32 --Vistaril 25 mg PO Scribe Attestation: Documented by Jessica Yao, acting as a scribe for Lea Riley PA-C Provider Scribe Attestation: All medical record entries made by the Scribe were at my direction and personally dictated by me. I have reviewed the chart and agree that the record accurately reflects my personal performance of the history, physical exam, medical decision making, and the department course for this patient. I have also personally directed, reviewed, and agree with the discharge instructions and disposition. Disposition - Clinical Impression Clinical Impression: Anxiety - Patient ED Disposition Is Patient to be Admitted: No - Disposition Disposition: Routine/Home Disposition Time: 15:30 Condition: FAIR Additional Instructions: FOLLOW UP WITH [facility] (MEDICAL AND LANDSCAPE MANAGER FOR THE HOMELESS) [address] [place] [address] Instructions: Anxiety, Adult (DC)
[2018-02-22 15:38] VITALS: BP 115/76; PULSE 54
[2018-02-22 16:00] LABS: BARBITURATES, UR NEGATIVE (NEGATIVE); BENZODIAZEPINES, UR NEGATIVE (NEGATIVE); OPIATES, UR NEGATIVE (NEGATIVE); PHENCYCLIDINE, UR NEGATIVE (NEGATIVE)
[2018-02-22 16:21] VITALS: RESP 16; TEMP 99.1
--- NOTE | 2018-02-22 21:44 | CARD ---
APPROVED REPORT Date of service: 02/22/2018 EKG Measurement Heart [id number] MD [id number] <Conclusion> Sinus bradycardia Otherwise normal ECG
== END 2018-02-22 16:21 | disposition home or self-care (01) ==
LOC: H.ER 13:39
DX: F41.0 Panic disorder [episodic paroxysmal anxiety] (principal); F31.9 Bipolar disorder, unspecified
CPT/HCPCS: 81025; 93005; 99283; G0480; Q0177

== ENCOUNTER 2018-02-27 09:06 | Emergency (ER) | payer MEDICAID ==
[2018-02-27 09:13] VITALS: O2SAT 97
[2018-02-27 09:14] VITALS: BMI 34.7
--- NOTE | 2018-02-27 09:52 | ED PDOC ---
HPI: CCC, URI, Sore Throat Time Seen by Provider: 02/27/18 09:37 Chief Complaint (Nursing): Abnormal Skin Integrity Chief Complaint (Provider): Cough History Per: Patient ( ) History/Exam Limitations: no limitations Onset/Duration Of Symptoms: Days (2-3 months) Additional Complaint(s): Cough, congestion, runny nose, sore throat. Able to swallow with no issues. Pt. has chronic sinusitis. Pt. with lump under her chin and is mild painful. No dc. Also with a bump on left wrist on the thumb side. Had purulent dc per pt. Is mild tender. No injury. No numbness, tingles, weakness, headaches, dizziness. No chest pain, dyspnea. No itching, bites, or any new things. Is homeless. Past Medical History Reviewed: Nursing Documentation, Vital Signs Vital Signs: Last Vital Signs Temp 97.8 F 02/27/18 09:13 Pulse 93 H 02/27/18 09:13 Resp 20 02/27/18 09:13 BP 112/80 02/27/18 09:13 Pulse Ox 97 02/27/18 09:13 - Medical History PMH: Anxiety, Bipolar Disorder Denies: Diabetes, Hepatitis, HIV, HTN, Chronic Kidney Disease, Seizures, Sexually Transmitted Disease - Surgical History Surgical History: No Surg Hx, - Family History Family History: States: Unknown Family Hx - Immunization History Hx Tetanus Toxoid Vaccination: Yes Hx Influenza Vaccination: Yes Hx Pneumococcal Vaccination: Yes - Home Medications Home Medications: Ambulatory Orders Medication Instructions Recorded oxyCODONE/Acetaminophen [Percocet 1 tab PO Q6 #10 tab 04/23/17 5/325 mg Tab] Oseltamivir Phosphate [Tamiflu] 75 mg PO BID #10 capsule 06/22/17 Ondansetron ODT [Zofran ODT] 4 mg PO Q8 PRN #12 odt 07/03/17 Dicyclomine [Bentyl] 20 mg PO Q12 PRN #20 tab 07/12/17 Ondansetron ODT [Zofran ODT] 4 mg PO Q6H PRN #8 odt 07/12/17 Oseltamivir Phosphate [Tamiflu] 75 mg PO BID 5 Days capsule 07/30/17 Cephalexin [cephalexin] 500 mg PO BID 7 Days cap 02/27/18 Ibuprofen [Motrin] 600 mg PO TID 7 Days tab 02/27/18 - Allergies Allergies/Adverse Reactions: Allergies Allergy/AdvReac Type Severity Reaction Status Date / Time No Known Allergies Allergy Verified 07/30/17 16:42 Review of Systems Constitutional: Negative for: Fever, Weakness Eyes: Negative for: Vision Change ENT: Positive for: Nose Pain, Nose Discharge, Nose Congestion, Throat Pain. Negative for: Ear Discharge Cardiovascular: Negative for: Chest Pain Respiratory: Positive for: Cough. Negative for: Shortness of Breath, Sputum Gastrointestinal: Negative for: Nausea, Vomiting, Abdominal Pain, Diarrhea Genitourinary Female: Negative for: Dysuria Musculoskeletal: Negative for: Neck Pain, Shoulder Pain, Back Pain Neurological: Negative for: Weakness Physical Exam - Reviewed Nursing Documentation Reviewed: Yes Vital Signs Reviewed: Yes - Physical Exam Appears: Positive for: Non-toxic, No Acute Distress Head Exam: Positive for: ATRAUMATIC, NORMAL INSPECTION, NORMOCEPHALIC Eye Exam: Positive for: Normal appearance, EOMI, PERRL ENT: Positive for: Pharynx Is (no erythema), Sinus Pain/Drainage (mild b/l), Nasal Congestion, Other (submental lymph node palpated, nontender, no erythema on skin; no dc or fluctuance). Negative for: Pharyngeal Erythema, Tonsillar Exudate Neck: Positive for: Normal, Painless ROM Cardiovascular/Chest: Positive for: Regular Rate, Rhythm Respiratory: Positive for: CNT, Normal Breath Sounds Gastrointestinal/Abdominal: Positive for: Normal Exam, Soft. Negative for: Tenderness Back: Positive for: Normal Inspection Extremity: Positive for: Normal ROM, Tenderness (left radial lateral wrist with 0.5cm diameter raised area; mild tender, no dc, no fluctuance, no induration; scab over it. ). Negative for: Pedal Edema Neurologic/Psych: Positive for: Alert, Oriented - ECG O2 Sat by Pulse Oximetry: 97 Pulse Ox Interpretation: Normal - Progress ED Course And Treament: 957: Pt. with chronic sinusitis hx and lymph node like related to that and acute uri. Pt. also with mild cellulitis of wrist. Will dc with keflex and motrin. Disposition - Clinical Impression Clinical Impression: Cellulitis, Lymph nodes enlarged, URI (upper respiratory infection) - Patient ED Disposition Is Patient to be Admitted: No Counseled Patient/Family Regarding: Studies Performed, Diagnosis, Need For Followup, Rx Given - Disposition Referrals: [facility] [Outside] - 03/02/18 Disposition: Routine/Home Disposition Time: 10:02 Condition: STABLE Additional Instructions: Return if not better in 3 days. Prescriptions: Cephalexin [cephalexin] 500 mg PO BID 7 Days cap Ibuprofen [Motrin] 600 mg PO TID 7 Days tab Instructions: Cellulitis and Erysipelas (Skin Infections), Viral Upper Respiratory Infection, Adult (DC)
[2018-02-27 10:23] VITALS: BP 120/76; PULSE 78; RESP 19; TEMP 97
== END 2018-02-27 10:24 | disposition home or self-care (01) ==
LOC: H.ER 09:06
DX: J06.9 Acute upper respiratory infection, unspecified (principal); R59.9 Enlarged lymph nodes, unspecified; L03.119 Cellulitis of unspecified part of limb

== ENCOUNTER 2018-03-23 12:46 | Emergency (ER) | payer MEDICAID ==
[2018-03-23 12:46] VITALS: BMI 34.7
[2018-03-23 13:36] VITALS: BP 117/83; PULSE 64; RESP 18; TEMP 99; O2SAT 100
--- NOTE | 2018-03-23 14:49 | ED PDOC ---
Lower Extremity Pain/Injury Chief Complaint (Provider): abscess History Per: Patient Additional Complaint(s): 37-year-old female presents with multiple pustular lesions to upper and lower extremities times one week. Patient denies any fever or chills. She states that she has noticed purulent discharge from some of the lesions. Patient is currently non-domiciled. She does not recall any recent insect bites. PMD: none <Lori Beach - Last Filed: 03/23/18 16:09> <Shannan Peng - Last Filed: 03/25/18 17:20> Time Seen by Provider: 03/23/18 14:48 Chief Complaint (Nursing): Lower Extremity Problem/Injury Supervising Attending Note - Attestation: I have personally seen and examined this patient.: No I have reviewed all pertinent clinical information, including history, physical exam and plan: Yes <Shannan Peng - Last Filed: 03/25/18 17:20> Past Medical History Reviewed: Historical Data, Nursing Documentation, Vital Signs Vital Signs: Last Vital Signs Temp 99 F 03/23/18 13:32 Pulse 64 03/23/18 13:32 Resp 18 03/23/18 13:32 BP 117/83 03/23/18 13:32 Pulse Ox 100 03/23/18 13:32 - Medical History PMH: Anxiety, Bipolar Disorder, HTN - Surgical History Surgical History: - Family History Family History: States: Diabetes - Living Arrangements Living Arrangements: Other (non-domiciled) - Social History Current smoker - smoking cessation education provided: Yes Alcohol: Social Drugs: Denies <Lori Beach - Last Filed: 03/23/18 16:09> Vital Signs: Last Vital Signs Temp 99 F 03/23/18 13:32 Pulse 64 03/23/18 13:32 Resp 18 03/23/18 13:32 BP 117/83 03/23/18 13:32 Pulse Ox 100 03/23/18 16:12 <Shannan Peng - Last Filed: 03/25/18 17:20> - Home Medications Home Medications: Ambulatory Orders Medication Instructions Recorded oxyCODONE/Acetaminophen [Percocet 1 tab PO Q6 #10 tab 04/23/17 5/325 mg Tab] Oseltamivir Phosphate [Tamiflu] 75 mg PO BID #10 capsule 06/22/17 Ondansetron ODT [Zofran ODT] 4 mg PO Q8 PRN #12 odt 07/03/17 Dicyclomine [Bentyl] 20 mg PO Q12 PRN #20 tab 07/12/17 Ondansetron ODT [Zofran ODT] 4 mg PO Q6H PRN #8 odt 07/12/17 Oseltamivir Phosphate [Tamiflu] 75 mg PO BID 5 Days capsule 07/30/17 Cephalexin [cephalexin] 500 mg PO BID 7 Days cap 02/27/18 Ibuprofen [Motrin] 600 mg PO TID 7 Days tab 02/27/18 - Allergies Allergies/Adverse Reactions: Allergies Allergy/AdvReac Type Severity Reaction Status Date / Time No Known Allergies Allergy Verified 07/30/17 16:42 Review of Systems ROS Statement: Except As Marked, All Systems Reviewed And Found Negative Skin: Positive for: Lesions <Lori Beach - Last Filed: 03/23/18 16:09> Physical Exam - Reviewed Nursing Documentation Reviewed: Yes Vital Signs Reviewed: Yes - Physical Exam Appears: Positive for: Well, Non-toxic, No Acute Distress Skin: Positive for: Normal Color, Rash (Multiple superficial pustular lesions noted to upper and lower extremities, no active drainage or bleeding noted) Eye Exam: Positive for: Normal appearance Cardiovascular/Chest: Positive for: Regular Rate, Rhythm, Tachycardia Respiratory: Positive for: Normal Breath Sounds. Negative for: Respiratory Distress Back: Positive for: Normal Inspection Extremity: Positive for: Normal ROM Neurologic/Psych: Positive for: Alert, Oriented <Lori Beach - Last Filed: 03/23/18 16:09> - ECG O2 Sat by Pulse Oximetry: 100 Pulse Ox Interpretation: Normal <Lori Beach - Last Filed: 03/23/18 16:09> Medical Decision Making Medical Decision Makin-year-old female with multiple boils. Patient is well-appearing, afebrile, nontoxic appearing. Prescription for clindamycin provided. Wound care instructions given. Patient was referred to clinic for follow-up. <Lori Beach - Last Filed: 03/23/18 16:09> Disposition - Patient ED Disposition Is Patient to be Admitted: No - Disposition Disposition: Left W/O Treatment (Patient left before receiving prescription and discharge instructions per) Disposition Time: 16:12 <Lori Beach - Last Filed: 03/23/18 16:09> <Shannan Peng - Last Filed: 03/25/18 17:20> - Clinical Impression Clinical Impression: Boil - Disposition Referrals: [facility] [Outside] Condition: UNKNOWN Instructions: Boil Forms: [employer] ([place])
== END 2018-03-23 15:40 | disposition left against medical advice (07) ==
LOC: H.ER 12:46
DX: L02.92 Furuncle, unspecified (principal); I10 Essential (primary) hypertension

== ENCOUNTER 2018-07-04 09:52 | Emergency (ER) | payer SELFPAY ==
[2018-07-04 09:53] VITALS: BMI 34.7
[2018-07-04 10:06] VITALS: BP 130/83; RESP 18; TEMP 99.7
[2018-07-04] MEDS ORDERED: Sodium Chloride 0.9% 1,000 ML IV STA (11:00)
[2018-07-04] MEDS ORDERED: Promethazine/Cod 6.25mg-10mg/5ml Syr UD PO STA (11:00)
--- NOTE | 2018-07-04 11:02 | ED PDOC ---
History of Present Illness History of Present Illness: 37 yo female, no PMH, presents to ED for evaluation of worsening flu symptoms. Pt Complains of body aches, headache, nausea, vomiting and diarrhea. States she was treated last week in ER for flu positive. Pt reports due to being homeless she could not afford any of her RXs No chest pain, back pain or SOB HPI: Influenza Time Seen by Provider: 07/04/18 10:28 Chief Complaint: Flu-like Symptoms Past Medical History Reviewed: Nursing Documentation, Vital Signs Vital Signs: Last Vital Signs Temp 99.7 F H 07/04/18 10:04 Pulse 120 H 07/04/18 10:04 Resp 18 07/04/18 10:04 BP 130/83 07/04/18 10:04 Pulse Ox 95 07/04/18 10:04 - Medical History PMH: Anxiety, Bipolar Disorder, HTN Denies: Diabetes, Hepatitis, HIV, Chronic Kidney Disease, Seizures, Sexually Transmitted Disease - Surgical History Surgical History: (x2) - Family History Family History: States: Unknown Family Hx, Diabetes - Living Arrangements Living Arrangements: Other - Immunization History Hx Tetanus Toxoid Vaccination: Yes Hx Influenza Vaccination: Yes Hx Pneumococcal Vaccination: Yes - Home Medications Home Medications: Ambulatory Orders Medication Instructions Recorded oxyCODONE/Acetaminophen [Percocet 1 tab PO Q6 #10 tab 04/23/17 5/325 mg Tab] Oseltamivir Phosphate [Tamiflu] 75 mg PO BID #10 capsule 06/22/17 Ondansetron ODT [Zofran ODT] 4 mg PO Q8 PRN #12 odt 07/03/17 Dicyclomine [Bentyl] 20 mg PO Q12 PRN #20 tab 07/12/17 Ondansetron ODT [Zofran ODT] 4 mg PO Q6H PRN #8 odt 07/12/17 Oseltamivir Phosphate [Tamiflu] 75 mg PO BID 5 Days capsule 07/30/17 Cephalexin [cephalexin] 500 mg PO BID 7 Days cap 02/27/18 Ibuprofen [Motrin] 600 mg PO TID 7 Days tab 02/27/18 Dicyclomine [Bentyl] 20 mg PO Q12 PRN #20 tab 06/25/18 Ondansetron ODT [Zofran ODT] 4 mg PO Q6 PRN #8 odt 06/25/18 Oseltamivir Cap [Tamiflu] 75 mg PO BID #10 cap 06/25/18 Ibuprofen [Motrin] 600 mg PO Q6 #20 tab 07/04/18 Promethazine HCl/Codeine 5 ml PO HS #80 ml 07/04/18 [Prometh-Codein 6.25-10 mg/5 ml] - Allergies Allergies/Adverse Reactions: Allergies Allergy/AdvReac Type Severity Reaction Status Date / Time No Known Allergies Allergy Verified 07/04/18 10:16 Review of Systems ROS Statement: Except As Marked, All Systems Reviewed And Found Negative Constitutional: Positive for: Fever ENT: Positive for: Nose Congestion Respiratory: Positive for: Cough Physical Exam - Reviewed Nursing Documentation Reviewed: Yes Vital Signs Reviewed: Yes - Physical Exam Appears: Positive for: Well, Non-toxic, No Acute Distress Head Exam: Positive for: ATRAUMATIC, NORMAL INSPECTION, NORMOCEPHALIC Skin: Positive for: Normal Color, Warm, DRY Eye Exam: Positive for: EOMI, Normal appearance, PERRL ENT: Positive for: Normal ENT Inspection Neck: Positive for: Normal, Painless ROM Cardiovascular/Chest: Positive for: Regular Rate, Rhythm Respiratory: Positive for: CNT, Normal Breath Sounds Gastrointestinal/Abdominal: Positive for: Normal Exam, Soft Back: Positive for: Normal Inspection Extremity: Positive for: Normal ROM Neurologic/Psych: Positive for: Alert, Oriented Medical Decision Making Medical Decision Making: IV access established and diagnostics ordered. labs resulted and reviewed w Pt who demonstrated full understanding pt medicated with promethazine/codeine and reports feeling improved on re-eval - Laboratory Results Result Diagrams: 07/04/18 12:00 07/04/18 12:00 - ECG O2 Sat by Pulse Oximetry: 95 Disposition - Clinical Impression Clinical Impression: Viral syndrome - Patient ED Disposition Is Patient to be Admitted: No - Disposition Disposition: Routine/Home Disposition Time: 13:16 Condition: STABLE Prescriptions: Ibuprofen [Motrin] 600 mg PO Q6 #20 tab Promethazine HCl/Codeine [Prometh-Codein 6.25-10 mg/5 ml] 5 ml PO HS #80 ml Instructions: Viral Syndrome (DC) Forms: [employer] (Swiss)
[2018-07-04] MEDS ORDERED: Promethazine/Cod 6.25mg-10mg/5ml Syr UD ONE (11:17)
--- NOTE | 2018-07-04 12:01 | RAD ---
Date of service: 07/04/2018 HISTORY: fever and cough COMPARISON: Chest radiograph dated 06/25/2018. TECHNIQUE: Chest PA and lateral FINDINGS: LUNGS: No active pulmonary disease. PLEURA: No significant pleural effusion identified. No pneumothorax apparent. CARDIOVASCULAR: No aortic atherosclerotic calcification present. Normal cardiac size. No pulmonary vascular congestion. OSSEOUS STRUCTURES: No significant abnormalities. VISUALIZED UPPER ABDOMEN: Normal. OTHER FINDINGS: None. IMPRESSION: No active disease.
[2018-07-04 12:53] LABS: ALB/GLOB RATIO 1.1 (1.0-2.1); ALT/SGPT 33 U/L (9-52); AST/SGOT 25 U/L (14-36); BLOOD UREA NITROGEN 11 mg/dl (7-17); CALCIUM 9.5 mg/dL (8.4-10.2); GFR NON-AFRICAN AMERICAN > 60
[2018-07-04 12:57] LABS: BASO % 0.8 % (0.0-2.0); EOS % 0.7 % (0.0-4.0); LYMPH # 0.6 K/uL (1.0-4.3); LYMPH % 15.2 % (20.0-40.0); MEAN CELL VOLUME 89.1 fl (81.0-99.0); MEAN CORPUSCULAR HEMOGLOBIN 28.2 pg (27.0-31.0); MEAN CORPUSCULAR HGB CONC 31.7 g/dL (33.0-37.0); MEAN PLATELET VOLUME 10.6 fl (7.2-11.7); MONO # 0.6 K/uL (0.0-0.8); MONO % 16.3 % (0.0-10.0); NEUT # 2.5 K/uL (1.8-7.0); NRBC % 0.4 % (0.0-0.0); RBC 4.24 Mil/uL (3.80-5.20); RED CELL DISTRIBUTION WIDTH 15.6 % (11.5-14.5); WHITE BLOOD COUNT 3.8 K/uL (4.8-10.8)
[2018-07-04 14:25] VITALS: PULSE 77; O2SAT 98
== END 2018-07-04 13:09 | disposition home or self-care (01) ==
LOC: H.ER 09:52
DX: B34.9 Viral infection, unspecified (principal)
CPT/HCPCS: 71046; 80053; 81025; 85025; 87804; 96360; 99284; J7030

== ENCOUNTER 2018-07-15 22:20 | Emergency (ER) | payer SELFPAY ==
[2018-07-15 22:20] VITALS: BMI 34.7
[2018-07-15 22:33] VITALS: BP 123/69; PULSE 67; RESP 18; TEMP 97.5; O2SAT 98
[2018-07-15] MEDS ORDERED: Sodium Chloride 0.9% 1,000 ML IV STA (22:49)
--- NOTE | 2018-07-15 22:53 | ED PDOC ---
HPI: General Adult Time Seen by Provider: 07/15/18 22:40 Chief Complaint (Nursing): GI Problem Chief Complaint (Provider): cough, congestion, vomiting and diarrhea History Per: Patient History/Exam Limitations: no limitations Onset/Duration Of Symptoms: Days Current Symptoms Are (Timing): Still Present Additional Complaint(s): Eva Luis is a 37 year old female, with a past medical history of sinus infection and HTN, who presents to the emergency department complaining of cough, congestion, vomiting and diarrhea associated with a lower abdominal pain onset for several days. Patient states cough and congestion worsen at night and reports multiple episodes of non bloody vomiting and watery diarrhea. Patient was seen on 07/04, she was tested for the flu which was negative and had an x- ray done. She returned to the ED less than a week after for vomiting and diarrhea, and states she was told it was a virus. She also reports an occasional wheezing but denies any fever, chills, chest pain or other medical complaints. PMD: [facility] Past Medical History Reviewed: Historical Data, Nursing Documentation, Vital Signs Vital Signs: Last Vital Signs Temp 97.5 F L 07/15/18 22:30 Pulse 67 07/15/18 22:30 Resp 18 07/15/18 22:30 BP 123/69 07/15/18 22:30 Pulse Ox 98 07/15/18 22:30 - Medical History PMH: Anxiety, Bipolar Disorder, HTN Denies: Diabetes, Hepatitis, HIV, Chronic Kidney Disease, Seizures, Sexually Transmitted Disease Other PMH: sinus infection - Surgical History Surgical History: (x2) - Family History Family History: States: Unknown Family Hx, Diabetes - Social History Current smoker - smoking cessation education provided: Yes Alcohol: None Drugs: Denies - Immunization History Hx Tetanus Toxoid Vaccination: Yes Hx Influenza Vaccination: Yes Hx Pneumococcal Vaccination: Yes - Home Medications Home Medications: Ambulatory Orders Medication Instructions Recorded oxyCODONE/Acetaminophen [Percocet 1 tab PO Q6 #10 tab 04/23/17 5/325 mg Tab] Oseltamivir Phosphate [Tamiflu] 75 mg PO BID #10 capsule 06/22/17 Ondansetron ODT [Zofran ODT] 4 mg PO Q8 PRN #12 odt 07/03/17 Dicyclomine [Bentyl] 20 mg PO Q12 PRN #20 tab 07/12/17 Ondansetron ODT [Zofran ODT] 4 mg PO Q6H PRN #8 odt 07/12/17 Oseltamivir Phosphate [Tamiflu] 75 mg PO BID 5 Days capsule 07/30/17 Cephalexin [cephalexin] 500 mg PO BID 7 Days cap 02/27/18 Ibuprofen [Motrin] 600 mg PO TID 7 Days tab 02/27/18 Dicyclomine [Bentyl] 20 mg PO Q12 PRN #20 tab 06/25/18 Ondansetron ODT [Zofran ODT] 4 mg PO Q6 PRN #8 odt 06/25/18 Oseltamivir Cap [Tamiflu] 75 mg PO BID #10 cap 06/25/18 Ibuprofen [Motrin] 600 mg PO Q6 #20 tab 07/04/18 Promethazine HCl/Codeine 5 ml PO HS #80 ml 07/04/18 [Prometh-Codein 6.25-10 mg/5 ml] - Allergies Allergies/Adverse Reactions: Allergies Allergy/AdvReac Type Severity Reaction Status Date / Time No Known Allergies Allergy Verified 07/15/18 22:30 Review of Systems ROS Statement: Except As Marked, All Systems Reviewed And Found Negative Constitutional: Negative for: Fever, Chills ENT: Positive for: Nose Congestion Cardiovascular: Negative for: Chest Pain Respiratory: Positive for: Cough, Wheezing (occasional) Gastrointestinal: Positive for: Vomiting, Abdominal Pain (lower ), Diarrhea Physical Exam - Reviewed Nursing Documentation Reviewed: Yes Vital Signs Reviewed: Yes - Physical Exam Appears: Positive for: No Acute Distress Head Exam: Positive for: ATRAUMATIC, NORMAL INSPECTION, NORMOCEPHALIC Skin: Positive for: Normal Color, Warm, Dry Eye Exam: Positive for: Normal appearance, EOMI, PERRL ENT: Positive for: Normal ENT Inspection Neck: Positive for: Normal, Painless ROM, Supple Cardiovascular/Chest: Positive for: Regular Rate, Rhythm. Negative for: Murmur Respiratory: Positive for: Normal Breath Sounds (clear to auscultation). Negative for: Respiratory Distress Gastrointestinal/Abdominal: Positive for: Normal Exam, Soft. Negative for: Tenderness, Guarding, Rebound Back: Positive for: Normal Inspection. Negative for: L CVA Tenderness, R CVA Tenderness, Vertebral Tenderness Extremity: Positive for: Normal ROM (upper and lower extremities). Negative for: Deformity, Swelling Neurologic/Psych: Positive for: Alert, Oriented - ECG O2 Sat by Pulse Oximetry: 98 (RA) Pulse Ox Interpretation: Normal - Progress Re-evaluation Time: 23:47 Condition: Re-examined, Improved Medical Decision Making Medical Decision Making: Time: 22:40 Initial Impression: gastroenteritis, bronchitis and sinusitis Initial Plan: --CMP --Lipase --Urine dipstick --CBC w/ differential --Duoneb 2.5mg INH --Bentyl 10 mg PO --Imodium 4 mg PO --NaCl 1,000 ml IV 1,000 mls/hr --Zofran Inj 4 mg IVP --Reevaluation ------ Scribe Attestation: Documented by Tawanda Novoa, acting as a scribe for Nadine Fisher MD Provider Scribe Attestation: All medical record entries made by the Scribe were at my direction and personally dictated by me. I have reviewed the chart and agree that the record accurately reflects my personal performance of the history, physical exam, medical decision making, and the department course for this patient. I have also personally directed, reviewed, and agree with the discharge instructions and disposition. Disposition - Clinical Impression Clinical Impression: Cough, Vomiting and diarrhea - Patient ED Disposition Is Patient to be Admitted: No Counseled Patient/Family Regarding: Studies Performed, Diagnosis - Disposition Disposition: Transfer of Care Disposition Time: 00:00 Condition: STABLE Patient Signed Over To: Mello Condon
[2018-07-15] MEDS ORDERED: Albuterol 0.083% Inhal Sol (2.5 mg/3 mL) UD INH STA (22:54)
[2018-07-15] MEDS ORDERED: Albuterol 0.083% Inhal Sol (2.5 mg/3 mL) UD ONE (23:33)
--- NOTE | 2018-07-16 00:31 | ED PDOC ---
- Laboratory Results Result Diagrams: 07/15/18 23:45 07/15/18 23:45 - ECG O2 Sat by Pulse Oximetry: 98 (RA) Pulse Ox Interpretation: Normal Medical Decision Making Medical Decision Making: Time: 00:00 Patient care endorsed form Dr. Fisher to provider pending labs and reevaluation. Time: 0200 Patient snoring Time: 5:00 Patient has not vomited or had any diarrhea since in the ER Explained to patient that she has had several prescriptions for treatments of various ailments this month, encouraged her to fill them except for tamiflu given length of course of illness Patient tolerating PO Stable for discharge Well appearing - Scribe Attestation: Documented by Panda Chahal acting as a scribe for Mello Condon MD. Provider Scribe Attestation: All medical record entries made by the Scribe were at my direction and personally dictated by me. I have reviewed the chart and agree that the record accurately reflects my personal performance of the history, physical exam, medical decision making, and the department course for this patient. I have also personally directed, reviewed, and agree with the discharge instructions and disposition. Disposition - Clinical Impression Clinical Impression: Cough, Vomiting and diarrhea - POA Present On Arrival: None - Disposition Referrals: [facility] [Outside] Disposition: Routine/Home Disposition Time: 05:24 Condition: STABLE Instructions: Viral Upper Respiratory Infection, Adult (DC), Nausea and Vomiting, Adult (DC) Forms: [employer] (Citizen Of [place])
[2018-07-16 00:48] LABS: BASO % 0.5 % (0.0-2.0); EOS # 0.1 K/uL (0.0-0.7); EOS % 1.6 % (0.0-4.0); HEMOGLOBIN 11.5 g/dL (12.0-16.0); LYMPH # 2.1 K/uL (1.0-4.3); LYMPH % 32.6 % (20.0-40.0); MEAN CELL VOLUME 86.6 fl (81.0-99.0); MEAN CORPUSCULAR HGB CONC 32.4 g/dL (33.0-37.0); MEAN PLATELET VOLUME 10.6 fl (7.2-11.7); MONO # 0.6 K/uL (0.0-0.8); MONO % 9.1 % (0.0-10.0); NEUT # 3.6 K/uL (1.8-7.0); NEUT % 56.2 % (50.0-75.0); RBC 4.09 Mil/uL (3.80-5.20); RED CELL DISTRIBUTION WIDTH 15.4 % (11.5-14.5); WHITE BLOOD COUNT 6.4 K/uL (4.8-10.8)
[2018-07-16 00:57] LABS: ALB/GLOB RATIO 1.1 (1.0-2.1); ALBUMIN 3.9 g/dL (3.5-5.0); ALT/SGPT 37 U/L (9-52); AST/SGOT 19 U/L (14-36); BLOOD UREA NITROGEN 15 mg/dl (7-17); CALCIUM 9.6 mg/dL (8.4-10.2); GFR NON-AFRICAN AMERICAN > 60; LIPASE 80 U/L (23-300)
--- NOTE | 2018-07-16 09:23 | RAD ---
Date of service: 07/16/2018 HISTORY: cough COMPARISON: Comparison made with chest radiograph 07/04/2018. FINDINGS: LUNGS: No active pulmonary disease. PLEURA: No significant pleural effusion identified, no pneumothorax apparent. CARDIOVASCULAR: No aortic atherosclerotic calcification present. Normal cardiac size. No pulmonary vascular congestion. OSSEOUS STRUCTURES: No significant abnormalities. VISUALIZED UPPER ABDOMEN: Normal. OTHER FINDINGS: None. IMPRESSION: No active disease.
== END 2018-07-16 05:40 | disposition home or self-care (01) ==
LOC: H.ER 22:20
DX: R05 Cough (principal); R11.10 Vomiting, unspecified; R19.7 Diarrhea, unspecified
CPT/HCPCS: 71045; 80053; 81025; 83690; 85025; 94640; 96361; 96374; 99283; J2405; J7030

== ENCOUNTER 2018-07-30 03:35 | Emergency (ER) | payer SELFPAY ==
[2018-07-30 03:36] VITALS: BMI 34.7
[2018-07-30 03:49] VITALS: BP 137/91; PULSE 76; RESP 16; TEMP 97.4; O2SAT 100
--- NOTE | 2018-07-30 04:11 | ED PDOC ---
HPI: Dental Pain/Injury Time Seen by Provider: 07/30/18 03:56 Chief Complaint (Nursing): ENT Problem Chief Complaint (Provider): toothache History Per: Patient History/Exam Limitations: no limitations Onset/Duration Of Symptoms: Days (1 week), Waxing/Waning Current Symptoms Are (Timing): Still Present Dental: 1 - pain Additional Complaint(s): 37 y/o female presents for evaluation of left upper and lower molar pain x 1 week. Associated radiation of pain to left ear. Patient states she has been taking ibuprofen and tylenol with little improvement. States she has not seen a dentist since last year. Denies fever, nausea/vomiting, facial swelling, difficulty speaking/swallowing. Past Medical History Reviewed: Historical Data, Nursing Documentation, Vital Signs Vital Signs: Last Vital Signs Temp 97.4 F L 07/30/18 03:46 Pulse 76 07/30/18 03:46 Resp 16 07/30/18 03:46 BP 137/91 H 07/30/18 03:46 Pulse Ox 100 07/30/18 03:46 - Medical History PMH: Anxiety, Bipolar Disorder, HTN Denies: Diabetes, Hepatitis, HIV, Chronic Kidney Disease, Seizures, Sexually Transmitted Disease - Surgical History Surgical History: (x2) - Family History Family History: States: Unknown Family Hx, Diabetes - Immunization History Hx Tetanus Toxoid Vaccination: Yes Hx Influenza Vaccination: Yes Hx Pneumococcal Vaccination: Yes - Home Medications Home Medications: Ambulatory Orders Medication Instructions Recorded oxyCODONE/Acetaminophen [Percocet 1 tab PO Q6 #10 tab 04/23/17 5/325 mg Tab] Oseltamivir Phosphate [Tamiflu] 75 mg PO BID #10 capsule 06/22/17 Ondansetron ODT [Zofran ODT] 4 mg PO Q8 PRN #12 odt 07/03/17 Dicyclomine [Bentyl] 20 mg PO Q12 PRN #20 tab 07/12/17 Ondansetron ODT [Zofran ODT] 4 mg PO Q6H PRN #8 odt 07/12/17 Oseltamivir Phosphate [Tamiflu] 75 mg PO BID 5 Days capsule 07/30/17 Cephalexin [cephalexin] 500 mg PO BID 7 Days cap 02/27/18 Ibuprofen [Motrin] 600 mg PO TID 7 Days tab 02/27/18 Dicyclomine [Bentyl] 20 mg PO Q12 PRN #20 tab 06/25/18 Ondansetron ODT [Zofran ODT] 4 mg PO Q6 PRN #8 odt 06/25/18 Oseltamivir Cap [Tamiflu] 75 mg PO BID #10 cap 06/25/18 Ibuprofen [Motrin] 600 mg PO Q6 #20 tab 07/04/18 Promethazine HCl/Codeine 5 ml PO HS #80 ml 07/04/18 [Prometh-Codein 6.25-10 mg/5 ml] Amoxicillin [Amoxil 500 mg Cap] 500 mg PO TID #20 cap 07/30/18 Naproxen [Naprosyn] 500 mg PO Q12 PRN #20 tablet 07/30/18 traMADol [Ultram] 50 mg PO Q8 PRN #10 tab 07/30/18 - Allergies Allergies/Adverse Reactions: Allergies Allergy/AdvReac Type Severity Reaction Status Date / Time No Known Allergies Allergy Verified 07/15/18 22:30 Review of Systems ROS Statement: Except As Marked, All Systems Reviewed And Found Negative ENT: Positive for: Mouth Pain Physical Exam - Reviewed Nursing Documentation Reviewed: Yes Vital Signs Reviewed: Yes - Physical Exam Appears: Positive for: Well, Non-toxic, No Acute Distress Head Exam: Positive for: ATRAUMATIC, NORMAL INSPECTION, NORMOCEPHALIC Skin: Positive for: Normal Color Eye Exam: Positive for: Normal appearance ENT: Positive for: TM Is/Are (clear bilaterally), Other (Tenderness to left upper and lower second molars without surrounding gingival tenderness, erythema, or abscess noted. No facial edema/erythema noted). Negative for: Nasal Congestion, Pharyngeal Erythema, Tonsillar Exudate, Tonsillar Swelling Neck: Positive for: Normal, Painless ROM Cardiovascular/Chest: Positive for: Regular Rate, Rhythm Respiratory: Positive for: Normal Breath Sounds Lymphatic: Positive for: Normal Exam Neurologic/Psych: Positive for: Alert, Oriented (x3) - ECG O2 Sat by Pulse Oximetry: 100 - Progress ED Course And Treament: -upreg -toradol IM -tramadol PO -Amox PO Patient educated on findings, discharged with Rx Amoxicillin, Tramadol, Naproxen Advised dental follow up within 2-3 days Return precautions given Disposition - Clinical Impression Clinical Impression: Toothache - Patient ED Disposition Is Patient to be Admitted: No Counseled Patient/Family Regarding: Diagnosis, Need For Followup, Rx Given - Disposition Disposition: Routine/Home Disposition Time: 04:45 Condition: IMPROVED Prescriptions: Amoxicillin [Amoxil 500 mg Cap] 500 mg PO TID #20 cap Naproxen [Naprosyn] 500 mg PO Q12 PRN #20 tablet PRN Reason: Pain, Moderate (4-7) traMADol [Ultram] 50 mg PO Q8 PRN #10 tab PRN Reason: Pain, Severe (8-10) Instructions: Dental Pain Forms: [employer] ([place]ian)
== END 2018-07-30 05:13 | disposition home or self-care (01) ==
LOC: H.ER 03:35
DX: K08.89 Other specified disorders of teeth and supporting structures (principal); F31.9 Bipolar disorder, unspecified; F41.9 Anxiety disorder, unspecified; I10 Essential (primary) hypertension
CPT/HCPCS: 81025; 96372; 99282; J1885